=== PATIENT | female | born 1990 | race Caucasian/White ===

== ENCOUNTER 2018-11-21 06:07 | Inpatient (IN) | payer OTHER ==
[~2018-11-21] VITALS: Ht 157.5 cm; Wt 79.1 kg
[2018-11-24] VITALS (29 sets, daily range): BP systolic 97–136; BP diastolic 55–75; PULSE 54–102; TEMP 97.4–98.7
[2018-11-24] MEDS ORDERED: FIORICET 325 MG1 TA1 PO (06:48)
[2018-11-24] MEDS ORDERED: PRENATAL (06:49)
--- NOTE | 2018-11-24 07:25 | NUR ---
0725-40.2 Week G5L3 patient of Dr. Blake ambulatory to LR4 for scheduled induction of labor. 07-Assisted into gown and placed on EFM. VSS. Reviewed plan of care with patient. RN began looking for IV site in left arm. Patient became faint and reports "I feel light headed." Head of bed leaned back, Fan in room turned on, 0730-patient continues to feel faint and bemes pale, oxygen via oxymask at 10l/min. 0732- RN calls for assistance and positions patient LL, patient not alert. 0733-IV to left wrist by MOOSE Marie. IVF bolus given. Patient A&O x4. Difficulty tracing FHR due to frequent repositioining, RN continues to adjust EFM. 0735-FHR deceleartion down to 60bpm, Dr. Maharaj on unit and into room. FHR returns to baseline after 110seconds. No new orders. MD reviews plan of care with patient.
[2018-11-24 07:56] LABS: BASO % 0.3 % (0.0-2.0); EOS # 0.1 (0.0-0.7); EOS % 0.7 % (0-4.0); GRAN # 6.2 (1.4-6.5); GRAN % 71.6 % (42.2-75.2); HEMOGLOBIN 11.2 g/dl (12.5-16.0); LYMPH # 1.7 (1.2-3.4); LYMPH % 19.4 % (20.0-51.0); MEAN CELL VOLUME 87 fl (80.0-100.0); MEAN CORPUSCULAR HEMOGLOBIN 30 pg (27.0-31.0); MEAN CORPUSCULAR HGB CONC 34 g/dl (33.0-37.0); MONO # 0.6 (0.1-0.6); MONO % 7.3 % (1.7-9.3); PLATELET COUNT 167 K/mm3 (130-400); RED BLOOD COUNT 3.79 M/mm3 (4.10-5.30); REDCELL DISTRIBUTION WIDTH-CV 13.8 % (11.5-14.5)
[2018-11-24 07:58] LABS: HEMATOCRIT 33.1 % (37.0-47.0)
--- NOTE | 2018-11-24 08:00 | NUR ---
0800-SVE By this RN /-3, BOW intact. 0805-Dr. Maharaj back to patient room. SVE by +BASIA, AROM by MD clear fluid noted. Peir care provided. Repositioned WL. MD reviews FHR monitor. Orders to start pitocin at 0845. Orders given for PRN stadol when patient desires, see EMAR.
--- NOTE | 2018-11-24 08:48 | NUR ---
0848-Pitocin started per MD orders at 2mu/min per protocol. Verified with MOOSE Ho.
--- NOTE | 2018-11-24 08:55 | NUR ---
0840-toco changed out.
--- NOTE | 2018-11-24 09:50 | NUR ---
1000-Repositioned LL with peanut ball in place.
--- NOTE | 2018-11-24 10:45 | NUR ---
1045-SVE BY THIS RN 5-6/-3 Patient up to bathroom, voids 400ml clear yellow urine. Returns to bedside remains standing. RN adjusts EFM. Patient reports coping well with contractions.
--- NOTE | 2018-11-24 11:15 | NUR ---
1115-Patient to bed, SVE /2, requests to use bathroom. 1120-back to bed WR. 1130-Difficulty tracing FHR due to maternal positioning and breathing through contractions. RN frequently readjusing EFM. Patient Requests Stadol. 1134-SVE 2, Patient decides against stadol, Remains WR in bed. Dr. Maharaj updated see physician notification.
--- NOTE | 2018-11-24 12:00 | NUR ---
1200-Patient requests SVE, Reports pressure feeling. SVE 7-100/-1, 1210-Up to bathroom, returns to bed Reports " I think the baby is coming." SVE /0, 1213-Dr. Maharaj updated, orders to turn pitocin off and he is on his way. 1217-Patient worried baby is going to come out with contraction. Encouraged patient to continue to breath through contraction and not push. SVE -/0. Dr. Maharaj contacted and updated on SVE. 1221-Dr. Maharaj in room Set up for delivery. 1224-Patient begins pushing with Dr. Maharaj at bedside through contraction. Moves vertex well. 1227-Spontaneous delivery of head. Patient contineus to push with contraction, head of bed turned down. McRobert's initiated, After 25 seconds body spontaneously delivered by Dr. Maharaj. Dr. maharaj suctions femal infants mouth and nose and clamps cord x2 and FOB cuts cord. to mothers abdomen. MOOSE Gold assumes care of infant. Apgars 899. 1231-Spontaneous delviery of intact placenta. Fundal massage firm. Lochia WNL. Pitocin bolus per MD orders and protocol. EBL 200ml.1st degree laceration repaired by MD. Selina Care provided. Updated on safety and Recovery plan of care.
--- NOTE | 2018-11-24 14:45 | NUR ---
1445-Patient up to bathroom with steady gait. VSS, Lochia WNL. Fundus firm. Voids 250ml clear yellow urine. Desires shower, assist with shower in LR shower. 1530-Paitent ambulates down to pp room 219 with steady gait. Oriented to room. Denies needs. Reported off to MOOSE Glover who assumes care of patient.
[2018-11-25] MEDS ORDERED: MOTRIN 800800 MG/TAB PO (05:12)
[2018-11-25 06:50] VITALS: BP 118/82; PULSE 86; TEMP 97.6
--- NOTE | 2018-11-25 15:45 | NUR ---
Patient given discharge instructions. Denies questions or concerns. Leaves via w/c with and spouse. Encouraged to call with questions or concerns.
== END 2018-11-25 15:45 | disposition home or self-care (01) | DRG 807 ==
LOC: LDR 11-24 06:06 → OB 11-24 15:15
PROVIDERS: ADMIT Obstetrics & Gynecology
PROC: 10E0XZZ Delivery of Products of Conception, External Approach (ICD-10-PCS; principal; 2018-11-24)
PROC: 10907ZC Drainage of Amniotic Fluid, Therapeutic from Products of Conception, Via Natural or Artificial Opening (ICD-10-PCS; 2018-11-24)
PROC: 3E033VJ Introduction of Other Hormone into Peripheral Vein, Percutaneous Approach (ICD-10-PCS; 2018-11-24)
PROC: 0HQ9XZZ Repair Perineum Skin, External Approach (ICD-10-PCS; 2018-11-24)
DX: O70.0 First degree perineal laceration during delivery (principal); Z37.0 Single live birth; Z3A.40 40 weeks gestation of pregnancy; O66.0 Obstructed labor due to shoulder dystocia; Z67.11 Type A blood, Rh negative; Z88.2 Allergy status to sulfonamides; R55 Syncope and collapse
CPT/HCPCS: J2590; J7120

== ENCOUNTER 2021-03-16 10:54 | Inpatient (IN) | payer BC ==
[2021-03-16] VITALS (21 sets, daily range): BP systolic 104–171; BP diastolic 54–95; PULSE 60–98; TEMP 97.8–98.8
[~2021-03-16] VITALS: Ht 157.5 cm; Wt 73.6 kg
[~2021-03-16 10:54] MED LIST: FIORICET 325 MG1 TA1 PO; MOTRIN 800800 MG/TAB PO; PRENATAL
--- NOTE | 2021-03-16 11:45 | NUR ---
Patient ambulates to LR6 with spouse, changed into gown, FHR/TOCO monitors placed and explained. Patient is a direct admit from office per Dr. Maharaj. Patient states she has been having regular contractions and some bloody show. Denies any leaking of fluid/vaginal bleeding/decreased movement. Plan of care discussed. Assessment completed, consents signed, packet given. 1157: Patient off monitor to void. 1210: IV started in left wrist per Wilman Jacob RN, blood obtained and to lab, LR infusing. 1215: Dr. Maharaj at bedside assessing patient and FHR strip. 1216: SVE per physician / and AROM with scant fluid at this time.
[2021-03-16 12:25] LABS: BASO % 0.3 % (0.0-2.0); EOS # 0.1 (0.0-0.7); EOS % 1.1 % (0-4.0); GRAN # 6.6 (1.4-6.5); GRAN % 75.6 % (42.2-75.2); HEMOGLOBIN 11.9 g/dl (12.5-16.0); LYMPH # 1.4 (1.2-3.4); LYMPH % 15.3 % (20.0-51.0); MEAN CELL VOLUME 90 fl (80.0-100.0); MEAN CORPUSCULAR HEMOGLOBIN 30 pg (27.0-31.0); MEAN CORPUSCULAR HGB CONC 33 g/dl (33.0-37.0); MEAN PLATELET VOLUME 10.4 fl (7.4-10.4); MONO # 0.6 (0.1-0.6); MONO % 6.9 % (1.7-9.3); PLATELET COUNT 157 K/mm3 (130-400); RED BLOOD COUNT 3.98 M/mm3 (4.10-5.30); REDCELL DISTRIBUTION WIDTH-CV 14.7 % (11.5-14.5)
[2021-03-16 12:30] LABS: HEMATOCRIT 35.8 % (37.0-47.0)
--- NOTE | 2021-03-16 13:28 | NUR ---
Patient requesting pitocin to be started due to contractions spacing out, Dr. Mhaaraj updated and orders to start pitocin. 1328: Pitocin started at 2mU/hr per protocol. 1445: Patient on birthing ball and contractions getting more intense 1545: Patient feeling more pressure, SVE 7-8/90/-[address] Maharaj notified. Patient resting right lateral 1558: Dr. Maharaj at bedside assessing patient and FHR strip. SVE per physcian 7-8. Patient bearing down with contraction. Dr. Maharaj and this RN at bedside with patient, Difficulty tracing FHR due to maternal position and monitor adjusted. 1619: Patient states she thinks baby is coming, SVE per physician-complete. Patient set up for vaginal delivery and pericare done. 1621: Spontaneous vaginal delivery of viable female-head followed by body, bulb syringed and to patients abdomen, cord clamped by physician and cut by FOB, cord blood obtained. 1624: Spontaneous delivery of placenta and pitocin bolus started per protocol. Fundal massage done/firm/bleeding WNL. Dr. Maharaj repairs vaginal wall laceration and patient tolerates well. Pericare done and patient repositioned and plan of care discussed.
--- NOTE | 2021-03-16 19:45 | NUR ---
up to bathroom with steady gait, voids large amount, passess 2 ping pong ball sized clots. Performs own pericare, clean gown and ambulates to room with steady gait.
[2021-03-17 00:30] VITALS: BP 104/57; PULSE 56; TEMP 98.7
[2021-03-17 04:45] VITALS: BP 101/56; PULSE 61; TEMP 98.8
[2021-03-17 08:15] VITALS: BP 115/63; PULSE 63
[2021-03-17] MEDS ORDERED: MOTRIN 800800 MG/TAB PO (08:47)
[2021-03-17 13:14] VITALS: BP 106/57; PULSE 69; TEMP 98
[2021-03-17 16:11] VITALS: BP 111/57; PULSE 72; TEMP 97.2
== END 2021-03-17 18:00 | disposition home or self-care (01) | DRG 806 ==
LOC: LDR 11:49
PROVIDERS: ADMIT Obstetrics & Gynecology
PROC: 10E0XZZ Delivery of Products of Conception, External Approach (ICD-10-PCS; principal; 2021-03-16)
PROC: 0UQGXZZ Repair Vagina, External Approach (ICD-10-PCS; 2021-03-16)
PROC: 10907ZC Drainage of Amniotic Fluid, Therapeutic from Products of Conception, Via Natural or Artificial Opening (ICD-10-PCS; 2021-03-16)
DX: O48.0 Post-term pregnancy (principal); O71.4 Obstetric high vaginal laceration alone; Z37.0 Single live birth; Z3A.40 40 weeks gestation of pregnancy; O99.02 Anemia complicating childbirth; D64.9 Anemia, unspecified
CPT/HCPCS: J2590; J7120